=== PATIENT | female | born 1955 | race Caucasian/White ===

== ENCOUNTER 2019-12-18 11:20 | Emergency (ER) | payer SELFPAY ==
[~2019-12-18] VITALS: Ht 165.1 cm; Wt 59.0 kg
[2019-12-18 11:26] VITALS: BP 144/90
== END 2019-12-18 12:17 | disposition home or self-care (01) ==
LOC: ER 11:20
DX: R50.9 Fever, unspecified (principal); Z88.6 Allergy status to analgesic agent
CPT/HCPCS: 71046

== ENCOUNTER 2024-10-31 14:43 | Emergency (ER) | payer MEDICAID, OTHER ==
[~2024-10-31] VITALS: Ht 165.1 cm; Wt 69.2 kg
--- NOTE | 2024-10-31 15:18 | ED.PDOC ---
History of Present Illness EXP HPI Comments 69 y/o F, presents the ED for CC of s/p body fluid exposure. 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 Patient comments on, wound bleeding post prick. Patient relays, that patient is hepatitis C +. Patient denies fever, chills, body aches, or N/V/D. No other symptoms or modifying factors at this time. Chief Complaint: Post Exposure Time Seen by MD: 15:00 Reviewed Notes: Nurses Notes, Medications, Allergies Allergies: Coded Allergies: Acetaminophen (Verified Allergy, Unknown, 12/18/19) Hydrocodone (Verified Allergy, Unknown, 12/18/19) Information Source: Patient Mode of Arrival: Ambulatory Severity: Moderate Severity Needlestick: Wound bled Timing: Days Duration: Since onset Prehospital treatment: None Exposed to: Blood Exposed by: Needlestick If needlestick: Unknown Source information: Hepatitis C+ Patient information: None Past Medical History PAST MEDICAL HISTORY: Denies VP RHEUMATOLOGY History: No Pertinent VP RHEUMATOLOGY History Family History Family History: Reviewed,noncontributory to illness Social History Smoker: Non-Smoker Alcohol: Denies ETOH Use Drugs: Denies Drug Use Lives In: Home Constitutional: denies: chills, diaphoresis, fatigue, fever, malaise, sweats, weakness, others EENTM: denies: blurred vision, double vision, ear bleeding, ear discharge, ear drainage, ear pain, ear ringing, eye pain, eye redness, hearing loss, mouth pain, mouth swelling, nasal discharge, nose bleeding, nose congestion, nose pain, photophobia, tearing, throat pain, throat swelling, voice changes, others Respiratory: denies: cough, hemoptysis, orthopnea, SOB at rest, shortness of breath, SOB with excertion, stridor, wheezing, others Cardiovascular: denies: chest pain, dizzy spells, diaphoresis, Dyspnea on exertion, edema, irregular heart beat, left arm pain, lightheadedness, palpita tions, PND, syncope, others Gastrointestinal: denies: abdomen distended, abdominal pain, blood streaked rae wels, constipated, diarrhea, dysphagia, difficulty swallowing, hematemesis, melena, nausea, poor appetite, poor fluid intake, rectal bleeding, rectal pain, vomiting, others Genitourinary: denies: abnormal vagina bleeding, burning, dyspareunia, dysuria, flank pain, frequency, hematuria, incontinence, pain, , vagina discharge, urgency, others Neurological: denies: dizziness, fainting, headache, left sided numbness, left sided weakness, numbness, paresthesia, pre-existing deficit, right sided numbness, right sided weakness, seizure, speech problems, tingling, tremors, weakness, others Musculoskeletal: denies: back pain, gout, joint pain, joint swelling, muscle pain, muscle stiffness, neck pain, others Integumetry: denies: bruises, change in color, change in hair/nails, dryness, laceration, lesions, lumps, rash, wounds, others Allergic/Immunocompromised: denies: Difficulty Healing, Frequent Infections, Hives, Itching, others Hematologic/Lymphatic: denies: anemia, blood clots, easy bleeding, easy bruis ing, swollen glands, others Endocrine: denies: excessive hunger, excessive sweating, excessive thirst, exc essive urination, flushing, intolerance to cold, intolerance to heat, unexplained weight gain, unexplained weight loss, others Psychiatric: denies: anxiety, bipolar disorder, depression, hopeless, panic disorder, schizophrenia, sleepless, suicidal, others All Other Systems: Reviewed and Negative Physical Exam General Appearance: Mild Distress HEENT: Normal ENT Inspection, Pharynx Normal, TMs Normal Neck: Full Range of Motion, Non-Tender, Normal, Normal Inspection Respiratory: Chest Non-Tender, Lungs Clear, No Accessory Muscle Use, No Respiratory Distress, Normal Breath Sounds Cardiovascular: No Edema, No JVD, No Murmur, No Gallop, Normal Peripheral Pulses, Regular Rate/Rhythm Breast Exam: Deferred Gastrointestinal: No Organomegaly, Non Tender, No Pulsatile Mass, Normal Bowel Sounds, Soft Genitalia: Deferred Pelvic: Deferred Rectal: Deferred Extremities: No calf tenderness, Normal capillary refill, Normal inspection, Normal range of motion, Non-tender, No pedal edema Musculoskeletal : Apperance: Normal Neurologic: Alert, 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 Was a procedure done?: No Differential Diagnosis (EXP) Differential Diagnosis: Body fluid exposure, Needle stick exposure X-Ray, Labs, Meds, VS Vital Signs Date Time Temp Pulse Resp B/P (MAP) Pulse Ox O2 Delivery O2 Flow Rate FiO2 10/31/24 15:27 97.8 94 18 121/80 (94) 98 Lab Test 10/31/24 15:30 Range/Units Hepatitis B Surface Antigen Pending Hepatitis B Surface Antibody Pending Hepatitis C Antibody Pending HIV (1&2) Antibody Pending Patient alert. Needlestick to the right thumb. Vitals stable. Answering all questions. No sign of distress. Order the labs. She will follow the labs. Offered prophylactic. Explained to the patient. Satisfied with the treatment plan. Was told to follow up with her primary care physician. Was told to come back if there is any problem. Time of 1ST Reevaluation: 15:30 Reevaluation 1ST: Improved Patient Education/Counseling: Diagnosis, Treatment Family Education/Counseling: No Family Present Additional Information I reviewed the following notes from patient's past medical encounters: The following tests were ordered, and results were reviewed by me: HEPATITIS B ANTIGEN, HEPATITIS B ANTIBODY, HIV 1&2 ANTIBODY I discussed treatment and results with medical personnel and: PATIENT Departure 1 Departure Time of Disposition: 15:49 Impression: Primary Impression: Needlestick injury accident Disposition: 01 HOME / SELF CARE / HOMELESS Condition: Good Discharged With: Self Critical Care Note Critical Care Time?: No Stability Stability form required: No Heart Score Heart Score: Heart Score Response (Comments) Value History N/A 0 EKG N/A 0 Age N/A 0 Risk Factors N/A 0 Troponin N/A 0 Total 0 I personally scribed for STEPHEN MASTERSON MD ([email or web address]) on 10/31/24 at 15:18. Electronically submitted by Jo Rueda ([email or web address]). I personally scribed for STEPHEN MASTERSON MD ([email or web address]) on 10/31/24 at 15:47. Electronically submitted by Jo Rueda ([email or web address]). STEPHEN MASTERSON MD Oct 31, 2024 15:18
[2024-10-31 15:27] VITALS: BP 121/80; PULSE 94; RESP 18; O2SAT 98
[2024-11-01 08:56] LABS: Hepatitis B Surface Antibody Negative (Negative); Hepatitis B Surface Antigen Negative (Negative)
== END 2024-10-31 18:00 | disposition left against medical advice (07) ==
LOC: ER 14:43
DX: S61.031A Puncture wound without foreign body of right thumb without damage to nail, initial encounter (principal); Z88.8 Allergy status to other drugs, medicaments and biological substances; Z77.21 Contact with and (suspected) exposure to potentially hazardous body fluids; Z88.5 Allergy status to narcotic agent; W46.0XXA Contact with hypodermic needle, initial encounter; Y93.89 Activity, other specified; Y92.89 Other specified places as the place of occurrence of the external cause; Y99.0 Civilian activity done for income or pay
CPT/HCPCS: 36415; 86703; 86706; 86803; 87340